=== PATIENT | male | born 1980 | race African-American/Black ===

== ENCOUNTER 2020-05-16 15:57 | Emergency (ER) | payer BC ==
[~2020-05-16] VITALS: Ht 170.2 cm; Wt 100.5 kg
[2020-05-16 16:06] VITALS: TEMP 98.1
[2020-05-16] MEDS ORDERED: ASPIRIN 81M81 MG/TA2 PO (16:16)
[2020-05-16] MEDS ORDERED: PRAVACHOL 40MG40 MG PO (16:21)
[2020-05-16] MEDS ORDERED: AVAPRO TAB150 MG/TAB PO (16:22)
[2020-05-16] MEDS ORDERED: COREG12.5 MG PO (16:22)
[2020-05-16 16:37] LABS: BASO % 0.5 % (0.0-2.0); EOS # 0.2 (0.0-0.7); EOS % 3.8 % (0-4.0); GRAN # 3.2 (1.4-6.5); GRAN % 50.2 % (42.2-75.2); HEMATOCRIT 45.3 % (42.0-52.0); HEMOGLOBIN 14.9 g/dl (13.5-18.0); LYMPH # 2.2 (1.2-3.4); LYMPH % 34.2 % (20.0-51.0); MEAN CELL VOLUME 91 fl (80.0-100.0); MEAN CORPUSCULAR HEMOGLOBIN 30 pg (27.0-31.0); MEAN CORPUSCULAR HGB CONC 33 g/dl (33.0-37.0); MEAN PLATELET VOLUME 12.6 fl (7.4-10.4); MONO # 0.7 (0.1-0.6); MONO % 11.1 % (1.7-9.3); PLATELET COUNT 172 K/mm3 (130-400); RED BLOOD COUNT 4.99 M/mm3 (4.20-5.60); REDCELL DISTRIBUTION WIDTH-CV 13.3 % (11.5-14.5)
[2020-05-16 16:42] LABS: CALCIUM 8.4 mg/dL (8.4-10.2); CREATININE, serum 1.23 (0.66-1.25); POTASSIUM 3.6 mmol/L (3.4-5.0)
[2020-05-16 16:54] LABS: TROPONIN-I 0.016 ng/mL (0.000-0.035)
[2020-05-16 17:44] VITALS: BP 169/110; PULSE 67
== END 2020-05-16 17:47 | disposition home or self-care (01) ==
LOC: COL.ER 15:57
PROVIDERS: Emergency Medicine
DX: I10 Essential (primary) hypertension (principal); I25.10 Atherosclerotic heart disease of native coronary artery without angina pectoris; Z95.5 Presence of coronary angioplasty implant and graft; Z79.82 Long term (current) use of aspirin
CPT/HCPCS: J0360

== ENCOUNTER 2020-05-20 16:17 | Emergency (ER) | payer BC ==
[~2020-05-20] VITALS: Ht 170.2 cm; Wt 100.0 kg
[~2020-05-20 16:17] MED LIST: ASPIRIN 81M81 MG/TA2 PO; AVAPRO TAB150 MG/TAB PO; COREG12.5 MG PO; PRAVACHOL 40MG40 MG PO
[2020-05-20 16:20] VITALS: TEMP 97.1
[2020-05-20 16:58] LABS: BASO % 0.6 % (0.0-2.0); EOS # 0.3 (0.0-0.7); EOS % 4.7 % (0-4.0); GRAN # 2.3 (1.4-6.5); GRAN % 42.8 % (42.2-75.2); HEMATOCRIT 44.6 % (42.0-52.0); LYMPH # 2.1 (1.2-3.4); LYMPH % 39.7 % (20.0-51.0); MEAN CELL VOLUME 89 fl (80.0-100.0); MEAN CORPUSCULAR HEMOGLOBIN 30 pg (27.0-31.0); MEAN CORPUSCULAR HGB CONC 34 g/dl (33.0-37.0); MEAN PLATELET VOLUME 12.2 fl (7.4-10.4); MONO # 0.6 (0.1-0.6); PLATELET COUNT 161 K/mm3 (130-400); RED BLOOD COUNT 5.02 M/mm3 (4.20-5.60); REDCELL DISTRIBUTION WIDTH-CV 13.2 % (11.5-14.5)
[2020-05-20 17:02] LABS: BILIRUBIN,TOTAL 0.8 mg/dL (0.0-1.0); CALCIUM 8.7 mg/dL (8.4-10.2); CREATININE, serum 1.32 (0.66-1.25); POTASSIUM 3.9 mmol/L (3.4-5.0); TOTAL PROTEIN 7.5 gm/dL (6.4-8.2)
[2020-05-20 17:14] LABS: TROPONIN-I 0.016 ng/mL (0.000-0.035)
[2020-05-20] MEDS ORDERED: EPA FISH OIL1 SGL PO (18:15)
[2020-05-20] MEDS ORDERED: MASON NATURAL1200 MG PO (18:16)
[2020-05-20 20:05] VITALS: BP 181/102; PULSE 89
== END 2020-05-20 20:12 | disposition short-term general hospital (02) ==
LOC: COL.ER 16:17
PROVIDERS: Nurse Practitioner
DX: I10 Essential (primary) hypertension (principal); I25.10 Atherosclerotic heart disease of native coronary artery without angina pectoris; I25.2 Old myocardial infarction; F17.210 Nicotine dependence, cigarettes, uncomplicated; Z20.822 Contact with and (suspected) exposure to COVID-19; Z95.9 Presence of cardiac and vascular implant and graft, unspecified; Z79.82 Long term (current) use of aspirin
CPT/HCPCS: J0360; J7050

== ENCOUNTER → 2022-09-04 | Outpatient (RCR) | payer OTHER ==
[~2022-09-04] MED LIST changes: +EPA FISH OIL1 SGL PO; +MASON NATURAL1200 MG PO
== END | disposition home or self-care (01) ==
LOC: COL.CR
DX: Z48.812 Encounter for surgical aftercare following surgery on the circulatory system (principal); Z98.61 Coronary angioplasty status; I21.9 Acute myocardial infarction, unspecified